=== PATIENT | female | born 1975 | race Caucasian/White ===

== ENCOUNTER → 2016-07-17 | Outpatient (REF) | payer OTHER ==
[~2016-07-17] MED LIST: AMBI10TA PO; AMLO5TAB2 PO; ASPI1TAB PO; DICY10CA13 PO; ESCI20TA PO; LEVA500T PO; LISI-538 PO; MECL-68 PO; METO50TA2 PO; OMEP40CA2 PO; RANI150T PO; TRAZ10TA PO; VENL75CA PO; XANA0.25 PO
== END ==
LOC: M SFHCLERA 16:04
PROVIDERS: ATTEND Family Medicine
DX: I10 Essential (primary) hypertension (principal); E07.89 Other specified disorders of thyroid; R41.3 Other amnesia

== ENCOUNTER → 2016-07-17 | Outpatient (CLI) | payer OTHER ==
[2016-07-17 21:04] LABS: BASO # 0.2 K/mm3 (0.0-0.2); BASO % 1.7 % (0.0-1.0); EOS # 0.2 K/mm3 (0.0-0.50); EOS % 1.8 % (0.0-3.0); LARGE UNSTAINED CELL # 0.1 K/mm3 (0.0-0.4); LARGE UNSTAINED CELL % 1.5 % (0.0-4.0); LYMPH # 2.9 K/mm3 (1.5-4.5); LYMPH % 32.3 % (24.0-44.0); MEAN CORPUSCULAR HEMOGLOBIN 27.1 pg (27.0-33.0); MEAN CORPUSCULAR HGB CONC 31.7 g/dl (32.0-36.5); MEAN CORPUSCULAR VOLUME 85.4 fl (80.0-96.0); MONO # 0.4 K/mm3 (0.0-0.8); MONO % 4.2 % (0.0-5.0); NEUTROPHILS # 5.1 K/mm3 (1.8-7.7); NEUTROPHILS % 58.5 % (36.0-66.0); PLATELET COUNT, AUTOMATED 397 k/mm3 (150-450); RED CELL DISTRIBUTION WIDTH 14.7 % (11.5-14.5); WHITE BLOOD COUNT 8.7 K/mm3 (4.0-10.0)
[2016-07-17 21:27] LABS: T UPTAKE 31 % (30-39); THYROXINE (T4) 9.6 UG/DL (4.5-12.0)
[2016-07-17 21:28] LABS: FOLATE 9.6 NG/ML; VITAMIN B12 LEVEL 498 PG/ML
[2016-07-17 21:38] LABS: ERYTHROCYTE SEDIMENTATION RATE 43 mm/hr (0-20)
[2016-07-21 00:06] LABS: VITAMIN E LEVEL 18.2 mg/L (5.3-16.8)
== END ==
LOC: M LRY 16:17
PROVIDERS: ATTEND Psychiatry & Neurology Neurology
DX: E55.9 Vitamin D deficiency, unspecified (principal); E07.9 Disorder of thyroid, unspecified; R41.3 Other amnesia

== ENCOUNTER → 2016-08-01 | Outpatient (REF) | payer OTHER | LOC: M SFHCLERA 16:35 | PROVIDERS: ATTEND Family Medicine | DX: L82.1 Other seborrheic keratosis (principal); D22.5 Melanocytic nevi of trunk ==

== ENCOUNTER → 2016-09-01 | Outpatient (REF) | payer OTHER | LOC: M SFHCLERA 12:12 | PROVIDERS: ATTEND Nurse Practitioner Family | DX: J40 Bronchitis, not specified as acute or chronic (principal) ==

== ENCOUNTER → 2016-09-13 | Outpatient (CLI) | payer OTHER ==
--- NOTE | 2016-09-13 11:17 | REP ---
Clinical: Right-sided pain with coughing Technique: Frontal view of the chest with multiple views of the right hemithorax. Findings: Frontal view of the chest demonstrates no acute cardiopulmonary process. Multiple views of the right hemithorax demonstrates no obvious acute rib fracture or pathology. Impression: Normal right rib series Signed by Jericho Siegel MD 09/13/2016 11:07 A
== END ==
LOC: M LRY 10:03
PROVIDERS: ATTEND Family Medicine
DX: R07.81 Pleurodynia (principal)

== ENCOUNTER → 2016-11-03 | Outpatient (CLI) | payer OTHER ==
--- NOTE | 2016-11-03 12:14 | REP ---
RIGHT ANKLE, FOUR VIEWS: There is no evidence of an acute fracture, dislocation or intrinsic bone disease. The ankle mortise is anatomic. IMPRESSION: No fracture or dislocation. Signed by Guillermo Murcia MD 11/03/2016 07:47 P
--- NOTE | 2016-11-03 12:34 | REP ---
RIGHT FOOT, FOUR VIEWS: There is no evidence of an acute fracture, dislocation or intrinsic bone disease. IMPRESSION: No fracture or dislocation. Signed by Guillermo Murcia MD 11/03/2016 07:47 P
== END ==
LOC: M LRY 11:24
PROVIDERS: ATTEND Physician Assistant
DX: M79.671 Pain in right foot (principal)

== ENCOUNTER → 2016-12-16 | Outpatient (CLI) | payer OTHER ==
--- NOTE | 2016-12-16 11:35 | REP ---
RIGHT ELBOW SERIES: 12/16/2016 CLINICAL HISTORY: Elbow pain. COMPARISON: None. FINDINGS: Four views show no evidence of soft tissue swelling over the olecranon nor avulsion of the triceps insertion there. There are no elbow joint effusion on the lateral view. The radial head and capitellum align normally. Distal humerus is intact without a supracondylar fracture. There is soft tissue calcification with spurring at the lateral epicondyle suggesting some lateral epicondylitis. IMPRESSION: 1. There is no fracture, joint effusion, evidence for bursitis or avulsion. 2. Some lateral epicondylitis suggested. No other finding. Signed by Elio Kaye MD 12/16/2016 07:33 P
== END ==
LOC: M LRY 10:19
PROVIDERS: ATTEND Physician Assistant
DX: M25.521 Pain in right elbow (principal)

== ENCOUNTER → 2017-02-21 | Outpatient (REF) | payer OTHER ==
[~2017-02-21] MED LIST changes: +LEVA1TAB2 PO; -LEVA500T PO; -METO50TA2 PO; +METO50TA7 PO; -VENL75CA PO; +VENL75CA2 PO
== END ==
LOC: M SFHCLERA 10:41
PROVIDERS: ATTEND Nurse Practitioner Family
DX: J02.9 Acute pharyngitis, unspecified (principal)